=== PATIENT | female | born 1965 | race Hispanic/Latino ===

== ENCOUNTER → 2023-04-20 08:32 | Outpatient (REF) | payer OTHER, SELFPAY | LOC: WDC 08:32 | PROVIDERS: ATTENDING PHYSICIAN Nurse Practitioner | DX: Z12.31 Encounter for screening mammogram for malignant neoplasm of breast (principal) | CPT/HCPCS: 77063; 77067 ==

== ENCOUNTER 2024-04-25 09:54 | Day surgery (SDC) | payer BC, SELFPAY | END 2024-04-25 11:59 | disposition home or self-care (01) | LOC: GI 09:54 | PROVIDERS: ATTENDING PHYSICIAN Internal Medicine Gastroenterology | DX: D12.0 Benign neoplasm of cecum (principal); K63.5 Polyp of colon; D50.0 Iron deficiency anemia secondary to blood loss (chronic); K31.89 Other diseases of stomach and duodenum; Z86.0101 Personal history of adenomatous and serrated colon polyps; K29.50 Unspecified chronic gastritis without bleeding; B96.81 Helicobacter pylori [H. pylori] as the cause of diseases classified elsewhere | CPT/HCPCS: 45380; 43239; 88305; 88342 ==